=== PATIENT | male | born 1970 | race Caucasian/White ===

== ENCOUNTER 2016-08-21 10:36 | Emergency (ER) | payer OTHER ==
[2016-08-21 11:34] LABS: ALBUMIN 4.6 g/dL (3.5-5.0); BILIRUBIN - TOTAL 0.3 mg/dL (0.1-1.0); CREATININE 1.1 mg/dL (0.7-1.2); GLOBULIN (CALCULATION) 2.8 g/dL (2.2-4.2); POTASSIUM 4.1 mmol/L (3.5-5.1); TOTAL PROTEIN 7.4 g/dL (6.4-8.3)
[2016-08-21 11:38] LABS: LACTIC ACID 3.2 mmol/L (0.5-2.2)
[2016-08-21 12:06] LABS: BASOPHIL 0.3 % (0-2); EOSINOPHIL 1.4 % (0-5); HCT 49.6 % (42.0-52.0); LYMPHOCYTE 37.3 % (15-48); MCH 30.1 pg (25.0-31.0); MCHC 34.3 g/dL (32.0-36.0); MCV 87.9 fL (78.0-100.0); MONOCYTE 8.4 % (0-12); MPV 9.4 fL (6.0-9.5); NEUTROPHIL 52.6 % (41-80); PLT 308 K/uL (150-400); RBC 5.64 M/uL (4.70-6.00); RDW 12.7 % (11.5-14.0); WBC 7.1 K/uL (4.0-10.5)
[2016-08-21 12:27] LABS: BILIRUBIN NEGATIVE (NEGATIVE); BLOOD 1+ Ery/uL (NEGATIVE); CLARITY CLEAR (CLEAR); COLOR YELLOW (YELLOW); GLUCOSE (U) NORMAL (NORMAL); KETONE (U) NEGATIVE (NEGATIVE); LEUKOCYTES NEGATIVE Leu/uL (NEGATIVE); NITRITE NEGATIVE (NEGATIVE); PROTEIN NEGATIVE (NEGATIVE); UROBILINOGEN 0.2 mg/dL (0.2-1.0)
[2016-08-21 12:55] LABS: SQUAMOUS EPITHELIAL CELLS RARE; URINARY WBC RARE
== END 2016-08-21 13:37 | disposition home or self-care (01) ==
LOC: FER 10:36
PROVIDERS: Nurse Practitioner
DX: N13.2 Hydronephrosis with renal and ureteral calculous obstruction (principal); F41.9 Anxiety disorder, unspecified; Z87.442 Personal history of urinary calculi; Z79.899 Other long term (current) drug therapy; Z98.890 Other specified postprocedural states
CPT/HCPCS: 36415; 80053; 81001; 83605; 85025; 87040; J1170; J1885; J2405